=== PATIENT | female | born 1980 | race African-American/Black ===

== ENCOUNTER 2025-01-05 09:51 | Emergency (ER) | payer MEDICAID ==
[~2025-01-05] VITALS: Ht 154.9 cm; Wt 77.0 kg
[2025-01-05 09:55] VITALS: O2SAT 97
[2025-01-05 09:56] VITALS: BP 148/75; PULSE 68; RESP 18; TEMP 36.7; O2SAT 98
[2025-01-05] MEDS: LIDOCAINE HCL 1% 20ML VIAL INFIL ONE (10:15)
[2025-01-05] MEDS: TETANUS, DIPHTHERIA, PERTUSSIS VAC/PF 0.5ML (>10YR OLD) IM ONE (10:41)
== END 2025-01-05 12:22 | disposition home or self-care (01) ==
LOC: ER 10:00
DX: S61.412A Laceration without foreign body of left hand, initial encounter (principal); Z88.0 Allergy status to penicillin; W25.XXXA Contact with sharp glass, initial encounter; Y93.G1 Activity, food preparation and clean up; Y92.89 Other specified places as the place of occurrence of the external cause; Y99.8 Other external cause status
CPT/HCPCS: 73130; 90715; 12002; 90471; 99283; Z7610 ×3